=== PATIENT | male | born 1930 | race Caucasian/White ===

== ENCOUNTER 2019-03-23 21:43 | Inpatient (IN) | payer OTHER ==
[~2019-03-23] VITALS: Ht 167.6 cm; Wt 65.5 kg
[2019-03-23 22:24] LABS: BASOPHILS % (AUTO) 0.9 % (0.0-5.0); EOSINOPHILS % (AUTO) 8.9 % (0.0-8.0); HEMATOCRIT 36.7 % (42-54); LYMPHOCYTES % (AUTO) 12.7 % (21.0-51.0); MEAN CORPUSCULAR HGB CONC 32.7 g/dL (32.0-36.0); MEAN CORPUSCULAR VOLUME 94.8 fL (79-99); NEUTROPHILS % (AUTO) 63.5 % (40.0-77.0); PLATELET COUNT (AUTO) 194 K/uL (130-400); RED BLOOD CELL COUNT(AUTO) 3.87 MIL/uL (4.50-6.20); WHITE BLOOD COUNT (AUTO) 6.5 K/uL (4.8-10.8)
[2019-03-23 22:36] LABS: CREATININE 4.1 mg/dL (0.5-1.5); POTASSIUM 5.9 mmol/L (3.5-5.1)
[2019-03-23 22:41] LABS: ALBUMIN 2.9 g/dL (3.5-5.0); BILIRUBIN,TOTAL 0.6 mg/dL (0.2-1.0); TOTAL PROTEIN, SERUM 7.6 g/dL (6.0-8.3)
[2019-03-23] MEDS ORDERED: SODIUM BICARB 50MEQ 50ML VIAL ONE (23:19)
[2019-03-23] MEDS ORDERED: CALCIUM GLUCONATE 1 GM/10 ML VIAL IV ONE (23:21)
[2019-03-23] MEDS ORDERED: DEXTROSE 5%-WATER 50 ML IV ONE (23:23)
[2019-03-23] MEDS ORDERED: INSULIN HUMULIN R 100 UNIT/ML 3ML ONE (23:24)
[2019-03-23] MEDS ORDERED: DEXTROSE 50%-WATER 50 ML DISP.SYRIN IV ONE (23:25)
[2019-03-23] MEDS ORDERED: ASPIRIN 325 MG TABLET ONE (23:30)
[2019-03-23] MEDS ORDERED: ALBUTEROL SULFATE 0.083% 2.5 MG/3 ML INH IH ONE (23:36)
[2019-03-24] VITALS (7 sets, daily range): BP systolic 123–155; BP diastolic 59–88
[2019-03-24] MEDS ORDERED: FOLI1TAB61 PO ×2 (01:22)
[2019-03-24] MEDS ORDERED: SIMV40TA59 PO ×2 (01:22)
[2019-03-24] MEDS ORDERED: VENL75TA63 PO ×2 (01:22)
[2019-03-24] MEDS ORDERED: CALC667C10 PO ×2 (01:22)
[2019-03-24] MEDS ORDERED: FERR159T2 PO (01:22)
[2019-03-24] MEDS ORDERED: INSLAN SQ ×2 (01:22)
[2019-03-24] MEDS ORDERED: MIRT30TA6 PO ×2 (01:22)
[2019-03-24] MEDS ORDERED: LEVO50TA4 PO ×2 (01:22)
[2019-03-24] MEDS ORDERED: FURO20TA6 PO (01:22)
[2019-03-24] MEDS ORDERED: OMEG-148 PO ×2 (01:22)
[2019-03-24] MEDS ORDERED: CLOP75TA14 PO (01:22)
[2019-03-24] MEDS ORDERED: MILK1CAP3 PO ×2 (01:22)
[2019-03-24] MEDS ORDERED: AMLO10TA7 PO (01:22)
[2019-03-24] MEDS ORDERED: GLUCAGON 1MG KIT 1 MG ML IM PRN (01:30)
[2019-03-24] MEDS ORDERED: HYDRALAZINE HCL 20 MG/ML VIAL IV PRN ×2 (01:30→01:45)
[2019-03-24] MEDS ORDERED: ONDANSETRON HCL 4 MG/2 ML VIAL IVP PRN ×2 (01:30→01:45)
[2019-03-24] MEDS ORDERED: DEXTROSE 50%-WATER 50 ML DISP.SYRIN IV PRN (01:30)
[2019-03-24] MEDS ORDERED: ACETAMINOPHEN 325 MG TAB PO PRN ×2 (01:30→01:45)
[2019-03-24 01:50] LABS: APPEARANCE,URINE Cloudy (CLEAR); BILIRUBIN,URINE Negative (NEGATIVE); COLOR,URINE Yellow (YELLOW); GLUCOSE, URINE (UA) 500 mg/dL (NEGATIVE); KETONES,URINE Negative (NEGATIVE); LEUKOCYTE ESTERASE ,URINE Negative (NEGATIVE); NITRATE,URINE Negative (NEGATIVE); OCCULT BLOOD,URINE Moderate (NEGATIVE); PROTEIN,URINE POS 2+ mg/dL (NEGATIVE)
[2019-03-24 02:08] LABS: RBC,URINE 0-1 /HPF (0-1); WBC,URINE 0-1 /HPF (0-1)
[2019-03-24 02:10] LABS: BACTERIA,URINE Few /HPF (None Seen)
[2019-03-24 04:47] LABS: TROPONIN I 0.19 ng/mL (0.00-0.06)
[2019-03-24] MEDS: INSULIN R PO SS1 SQ SCH ×4 (06:10→21:00)
[2019-03-24] MEDS: FAMOTIDINE/PF 20 MG/2 ML VIAL IV SCH (09:00)
[2019-03-24] MEDS ORDERED: PANTOPRAZOLE 40 MG/VIAL IVP SCH (09:00)
--- NOTE | 2019-03-24 11:56 | NUR ---
DC PLAN VISITED WITH PATIENT. PATIENT LIVES WITH SPOUSE. DIALYSIS TTS. USES A [employer]CO[employer] NO OTHER SERVICES OR DME'S. RECENTLY MOVED GOES TO THE [place] [facility]. FEELS SAFE TO RETURN HOME. Addendum: 03/24/19 at 1201 by YUNG VAUGHN RN CM Amended: Links added.
[2019-03-24] MEDS: CALCIUM ACETATE 667 MG CAPSULE PO SCH ×2 (12:00→17:03)
[2019-03-24 12:58] LABS: CREATININE 4.5 mg/dL (0.5-1.5); POTASSIUM 4.9 mmol/L (3.5-5.1)
[2019-03-24 13:24] LABS: TROPONIN I 0.18 ng/mL (0.00-0.06)
[2019-03-24 18:44] LABS: TROPONIN I 0.17 ng/mL (0.00-0.06)
[2019-03-24] MEDS: SIMVASTATIN 20 MG TABLET PO SCH (20:47)
[2019-03-24] MEDS: FISH OIL 1000 MG/CAP PO SCH (20:47)
[2019-03-24] MEDS: MIRTAZAPINE 15 MG TABLET PO SCH (20:47)
[2019-03-24] MEDS: CLOPIDOGREL BISULFATE 75 MG TAB PO SCH (20:51)
[2019-03-25 00:53] LABS: TROPONIN I 0.14 ng/mL (0.00-0.06)
[2019-03-25 04:28] VITALS: BP 141/88
[2019-03-25 06:18] LABS: BASOPHILS % (AUTO) 0.4 % (0.0-5.0); EOSINOPHILS % (AUTO) 9.5 % (0.0-8.0); HEMATOCRIT 35.1 % (42-54); LYMPHOCYTES % (AUTO) 13.1 % (21.0-51.0); MEAN CORPUSCULAR HEMOGLOBIN 31.1 pg (27.0-33.0); MEAN CORPUSCULAR HGB CONC 32.8 g/dL (32.0-36.0); MEAN CORPUSCULAR VOLUME 94.8 fL (79-99); MONOCYTES % (AUTO) 16.6 % (3.0-13.0); NEUTROPHILS % (AUTO) 60.4 % (40.0-77.0); PLATELET COUNT (AUTO) 162 K/uL (130-400); RED BLOOD CELL COUNT(AUTO) 3.71 MIL/uL (4.50-6.20); RED CELL DISTRIBUTION WIDTH 16.6 % (11.0-15.5); WHITE BLOOD COUNT (AUTO) 5.8 K/uL (4.8-10.8)
[2019-03-25 06:41] LABS: CREATININE 3.1 mg/dL (0.5-1.5); PHOSPHORUS 3.1 mg/dL (2.5-4.9); POTASSIUM 3.7 mmol/L (3.5-5.1); THYROID STIMULATING HORMONE 4.17 uIU/mL (0.36-3.74)
[2019-03-25] MEDS: INSULIN R PO SS1 SQ SCH ×4 (06:43→21:00)
[2019-03-25 07:21] LABS: TROPONIN I 0.13 ng/mL (0.00-0.06)
[2019-03-25 07:45] VITALS: BP 110/74
[2019-03-25] MEDS: LEVOTHYROXINE 50 MCG TABLET PO SCH (07:47)
[2019-03-25] MEDS: FOLIC ACID/VITAMIN B COMP W-C 1 MG CAP/TAB PO SCH (07:47)
[2019-03-25] MEDS: FAMOTIDINE/PF 20 MG/2 ML VIAL IV SCH (07:47)
[2019-03-25] MEDS: VENLAFAXINE HCL 75 MG TAB PO SCH (07:47)
[2019-03-25] MEDS: FISH OIL 1000 MG/CAP PO SCH ×2 (07:47→21:03)
[2019-03-25] MEDS: FERROUS SULFATE 325 MG TABLET.DR PO SCH (07:47)
[2019-03-25] MEDS: ASPIRIN 81MG TAB.CHEW PO SCH (07:48)
[2019-03-25] MEDS: MILK THISTLE 300 MG PO SCH (07:48)
[2019-03-25] MEDS: INSULIN GLARGINE 100 UNITS/ML 10 ML VIAL SQ SCH (07:48)
[2019-03-25 11:44] VITALS: BP 117/75
[2019-03-25] MEDS: CALCIUM ACETATE 667 MG CAPSULE PO SCH ×2 (12:00→16:39)
[2019-03-25] MEDS ORDERED: AMLO5TAB9 PO ×2 (12:28)
[2019-03-25] MEDS ORDERED: FURO80TA87 PO ×2 (12:28)
[2019-03-25] MEDS ORDERED: FUROSEMIDE 80 MG TABLET PO PRN (12:30)
--- NOTE | 2019-03-25 13:10 | NUR ---
DR. RODAS IS MAKING HIS ROUNDS. PER MD, PATIENT WILL NEED TO RESUME HD - . CARDIOLOGY WILL ALSO BE CONSULTED FOR AFIB. PATIENT'S CANDY CUTTER MACHINE IS DR. VYAS. CALLED OFFICE. AWAITING MD'S CALL BACK.
[2019-03-25 15:38] VITALS: BP 132/70
[2019-03-25 19:33] VITALS: BP 130/67
[2019-03-25] MEDS: SIMVASTATIN 20 MG TABLET PO SCH (21:03)
[2019-03-25] MEDS: MIRTAZAPINE 15 MG TABLET PO SCH (21:04)
[2019-03-25] MEDS: CLOPIDOGREL BISULFATE 75 MG TAB PO SCH (21:04)
--- NOTE | 2019-03-25 21:42 | NUR ---
DR Tobias Collado rounding. New orders receive, will carry out.
[2019-03-25 23:06] VITALS: BP 158/98
[2019-03-26 03:30] VITALS: BP 130/54
[2019-03-26 04:35] LABS: HEMATOCRIT 36.3 % (42-54); MEAN CORPUSCULAR HEMOGLOBIN 31.1 pg (27.0-33.0); MEAN CORPUSCULAR VOLUME 94.4 fL (79-99); PLATELET COUNT (AUTO) 163 K/uL (130-400); RED BLOOD CELL COUNT(AUTO) 3.85 MIL/uL (4.50-6.20); RED CELL DISTRIBUTION WIDTH 16.6 % (11.0-15.5); WHITE BLOOD COUNT (AUTO) 7.4 K/uL (4.8-10.8)
[2019-03-26 04:48] LABS: CREATININE 3.9 mg/dL (0.5-1.5); POTASSIUM 4.3 mmol/L (3.5-5.1)
[2019-03-26 05:07] LABS: EOSINOPHILS % (MANUAL) 9 % (1-6); LYMPHOCYTES % (MANUAL) 12 % (22-44); MAN.DIFF COMMENT-IMPRESSION MANUAL DIFFERENTIAL; MONOCYTES % (MANUAL) 10 % (2-9); PLATELET MORPHOLOGY COMMENT ADEQUATE; SEGMENTED NEUTROPHILS % 69 % (40-70)
[2019-03-26] MEDS: INSULIN R PO SS1 SQ SCH ×4 (06:00→21:31)
[2019-03-26] MEDS: INSULIN GLARGINE 100 UNITS/ML 10 ML VIAL SQ SCH (06:18)
[2019-03-26 07:29] VITALS: BP 141/67
[2019-03-26] MEDS: FOLIC ACID/VITAMIN B COMP W-C 1 MG CAP/TAB PO SCH (08:37)
[2019-03-26] MEDS: FISH OIL 1000 MG/CAP PO SCH ×2 (08:37→21:31)
[2019-03-26] MEDS: APIXABAN 2.5 MG TABLET PO SCH ×2 (08:37→21:32)
[2019-03-26] MEDS: FERROUS SULFATE 325 MG TABLET.DR PO SCH (08:37)
[2019-03-26] MEDS: LEVOTHYROXINE 50 MCG TABLET PO SCH (08:38)
[2019-03-26] MEDS: ASPIRIN 81MG TAB.CHEW PO SCH (08:38)
[2019-03-26] MEDS: FAMOTIDINE/PF 20 MG/2 ML VIAL IV SCH (08:38)
[2019-03-26] MEDS: VENLAFAXINE HCL 75 MG TAB PO SCH (08:38)
[2019-03-26] MEDS: MILK THISTLE 300 MG PO SCH (08:42)
[2019-03-26] MEDS ORDERED: FUROSEMIDE 80 MG TABLET PO PRN (09:00)
[2019-03-26] MEDS ORDERED: AMLODIPINE BESYLATE 5 MG TAB PO SCH ×2 (09:00→21:00)
[2019-03-26 11:48] VITALS: BP 143/75
[2019-03-26] MEDS: CALCIUM ACETATE 667 MG CAPSULE PO SCH ×2 (12:36→16:45)
[2019-03-26] MEDS ORDERED: SODIUM CHLORIDE 0.9% 1000ML 1,000 ML IV PRN (13:00)
[2019-03-26] MEDS ORDERED: 0.9% SODIUM CHLORIDE 1000 ML IV BAG IV PRN (13:00)
[2019-03-26] MEDS ORDERED: ACETAMINOPHEN 325 MG TAB PO PRN (13:00)
[2019-03-26] MEDS ORDERED: NITROGLYCERIN 0.4 MG SL TAB SL PRN (13:00)
[2019-03-26] MEDS ORDERED: HEPARIN SODIUM 5000UNIT/ML 1ML VIAL IJ PRN ×2 (13:00)
[2019-03-26 15:26] VITALS: BP 115/58
[2019-03-26 19:06] VITALS: BP 141/74
[2019-03-26] MEDS: SIMVASTATIN 20 MG TABLET PO SCH (21:32)
[2019-03-26] MEDS: MIRTAZAPINE 15 MG TABLET PO SCH (21:32)
[2019-03-26 23:12] VITALS: BP 154/88
[2019-03-27 03:57] VITALS: BP 136/76
--- NOTE | 2019-03-27 03:59 | NUR ---
IV Patient removed IV on 03/26/19. patient AOX2, spouse at bedside. As per spouse and patient do not want new IV insertion. States they are awaiting to be discharge by Doctor Olivia today in the morning. Phlebotomy at bedside collecting morning labs.
[2019-03-27 04:33] LABS: MEAN CORPUSCULAR HEMOGLOBIN 31.1 pg (27.0-33.0); MEAN CORPUSCULAR VOLUME 94.1 fL (79-99); PLATELET COUNT (AUTO) 159 K/uL (130-400); RED BLOOD CELL COUNT(AUTO) 3.93 MIL/uL (4.50-6.20); RED CELL DISTRIBUTION WIDTH 16.3 % (11.0-15.5); WHITE BLOOD COUNT (AUTO) 7.6 K/uL (4.8-10.8)
[2019-03-27 04:45] LABS: POTASSIUM 4.3 mmol/L (3.5-5.1)
[2019-03-27] MEDS: INSULIN GLARGINE 100 UNITS/ML 10 ML VIAL SQ SCH (05:28)
[2019-03-27] MEDS: INSULIN R PO SS1 SQ SCH (05:29)
[2019-03-27 07:43] VITALS: BP 121/89
[2019-03-27] MEDS ORDERED: FAMOTIDINE 20MG TAB 20 MG TAB PO SCH (09:00)
[2019-03-27 11:47] VITALS: BP 160/84
[2019-03-27] MEDS: FOLIC ACID/VITAMIN B COMP W-C 1 MG CAP/TAB PO SCH (12:03)
[2019-03-27] MEDS: CALCIUM ACETATE 667 MG CAPSULE PO SCH (12:03)
[2019-03-27] MEDS: FISH OIL 1000 MG/CAP PO SCH (12:03)
[2019-03-27] MEDS: FERROUS SULFATE 325 MG TABLET.DR PO SCH (12:04)
[2019-03-27] MEDS: ASPIRIN 81MG TAB.CHEW PO SCH (12:04)
[2019-03-27] MEDS: VENLAFAXINE HCL 75 MG TAB PO SCH (12:04)
[2019-03-27] MEDS: APIXABAN 2.5 MG TABLET PO SCH (12:04)
[2019-03-27] MEDS ORDERED: APIX2.5T PO (14:09)
== END 2019-03-27 15:07 | disposition home or self-care (01) | DRG 640 ==
LOC: EDH 21:43 → EDHIP 23:43 → 2DH 03-24 00:12
PROVIDERS: ADMIT Internal Medicine Nephrology; ATTEND Internal Medicine Nephrology
PROC: 5A1D70Z Performance of Urinary Filtration, Intermittent, Less than 6 Hours Per Day (ICD-10-PCS; principal; 2019-03-24)
PROC: 5A1D70Z Performance of Urinary Filtration, Intermittent, Less than 6 Hours Per Day (ICD-10-PCS; 2019-03-26)
DX: E87.70 Fluid overload, unspecified (principal); N18.6 End stage renal disease; I42.9 Cardiomyopathy, unspecified; I12.0 Hypertensive chronic kidney disease with stage 5 chronic kidney disease or end stage renal disease; E87.5 Hyperkalemia; E11.21 Type 2 diabetes mellitus with diabetic nephropathy; E11.22 Type 2 diabetes mellitus with diabetic chronic kidney disease; I48.91 Unspecified atrial fibrillation; D64.9 Anemia, unspecified; E11.51 Type 2 diabetes mellitus with diabetic peripheral angiopathy without gangrene; F03.90 Unspecified dementia, unspecified severity, without behavioral disturbance, psychotic disturbance, mood disturbance, and anxiety; I35.0 Nonrheumatic aortic (valve) stenosis; E78.5 Hyperlipidemia, unspecified; Z99.2 Dependence on renal dialysis; Z88.0 Allergy status to penicillin; Z88.8 Allergy status to other drugs, medicaments and biological substances
CPT/HCPCS: 36415; 71045; 80048; 80053; 81001; 82550; 82948; 83735; 83874; 83880; 84100; 84443; 84484; 85025; 85027; 87040; 90935; 93005; 93306; 94640; 99291; G0378; J0610; J1644; J1815; J3490; J7060; J7070

== ENCOUNTER 2019-03-30 01:18 | Emergency (ER) | payer OTHER ==
[~2019-03-30 01:18] MED LIST: AMLO5TAB9 PO; CALC667C10 PO; FOLI1TAB61 PO; FURO80TA87 PO; INSLAN SQ; LEVO50TA4 PO; MILK1CAP3 PO; MIRT30TA6 PO; OMEG-148 PO; SIMV40TA59 PO; VENL75TA63 PO
[2019-03-30] MEDS ORDERED: ACETAMINOPHEN-CODEINE 300/30MG TAB ONE (02:27)
== END 2019-03-30 03:41 | disposition left against medical advice (07) ==
LOC: EDH 01:18
DX: M54.2 Cervicalgia (principal); G89.29 Other chronic pain; E11.22 Type 2 diabetes mellitus with diabetic chronic kidney disease; I12.0 Hypertensive chronic kidney disease with stage 5 chronic kidney disease or end stage renal disease; N18.6 End stage renal disease; I48.91 Unspecified atrial fibrillation; I25.10 Atherosclerotic heart disease of native coronary artery without angina pectoris; Z99.2 Dependence on renal dialysis; Z90.49 Acquired absence of other specified parts of digestive tract; Z88.0 Allergy status to penicillin; Z88.8 Allergy status to other drugs, medicaments and biological substances; Z87.891 Personal history of nicotine dependence